=== PATIENT | male | born 1985 | race Asian ===

== ENCOUNTER 2019-04-24 12:22 | Emergency (ER) | payer OTHER ==
[~2019-04-24] VITALS: Ht 177.8 cm; Wt 60.6 kg
[2019-04-24 12:25] VITALS: Ht 177.8 cm; Wt 60.6 kg
[2019-04-24 13:23] VITALS: BP 145/82
== END 2019-04-24 13:23 | disposition home or self-care (01) ==
LOC: ED 12:22
DX: R19.7 Diarrhea, unspecified (principal); R10.84 Generalized abdominal pain